=== PATIENT | female | born 1970 | race African-American/Black ===

== ENCOUNTER 2020-01-31 05:39 | Emergency (ER) | payer OTHER ==
[~2020-01-31] VITALS: Ht 162.6 cm; Wt 79.5 kg
[2020-01-31 05:47] VITALS: BP 149/75
--- NOTE | 2020-01-31 06:00 | PHYS DOC ---
Past Medical History Past Medical History: No Pertinent History Past Surgical History: Smoking Status: Former Smoker Alcohol Use: None Drug Use: None General Adult EDM: Chief Complaint: URINARY FREQUENCY HPI: HPI: Patient is a 49-year-old female past medical history notable for hypertension who presents with chief complaint of urinary frequency and dysuria over the past 2 days. She notes mild suprapubic discomfort. She states she has tried Pyridium tablets from [facility] over the past day with minimal relief. Denies hematuria. Denies fevers or vomiting. Denies back pain. Denies syncope. Denies history of abdominal surgeries. States she has been eating and drinking well otherwise. Denies any vaginal complaints. Denies changes to her stool caliber or consistency. States her only concern is having her urine assessed for infection. No other complaints. Review of Systems: Review of Systems: Constitutional: Denies fever or chills. [] Eyes: Denies change in visual acuity. [] HENT: Denies nasal congestion or sore throat. [] Respiratory: Denies cough or shortness of breath. [] Cardiovascular: Denies chest pain or edema. [] GI: Denies abdominal pain, nausea, vomiting, bloody stools or diarrhea. [] : Positive for increased urge to void and dysuria Musculoskeletal: Denies back pain or joint pain. [] Integument: Denies rash. [] Neurologic: Denies headache, focal weakness or sensory changes. [] Endocrine: Denies polyuria or polydipsia. [] Lymphatic: Denies swollen glands. [] Psychiatric: Denies depression or anxiety. [] Heart Score: Risk Factors: Risk Factors: DM, Current or recent (<one month) smoker, HTN, HLP, family history of CAD, obesity. Risk Scores: Score 0 - 3: 2.5% MACE over next 6 weeks - Discharge Home Score 4 - 6: 20.3% MACE over next 6 weeks - Admit for Clinical Observation Score 7 - 10: 72.7% MACE over next 6 weeks - Early Invasive Strategies Allergies: Allergies: Allergies Coded Allergies Type Severity Reaction Last Updated Verified No Known Drug Allergies 08/28/14 No Physical Exam: PE: Constitutional: Well developed, well nourished, no acute distress, non-toxic appearance. [] HENT: Normocephalic, atraumatic, bilateral external ears normal, oropharynx m oist, no oral exudates, nose normal. [] Eyes: PERRLA, EOMI, conjunctiva normal, no discharge. [] Neck: Normal range of motion, no tenderness, supple, no stridor. [] Cardiovascular:Heart rate regular rhythm, no murmur [] Lungs & Thorax: Bilateral breath sounds clear to auscultation [] Abdomen: Soft, nontender, nonacute abdomen. No involuntary guarding or rigidity noted. No acute peritonitis. Skin: Warm, dry, no erythema, no rash. [] Back: No tenderness, no CVA tenderness. [] Extremities: No tenderness, no cyanosis, no clubbing, ROM intact, no edema. [] Neurologic: Alert and oriented X 3, normal motor function, normal sensory function, no focal deficits noted. [] Psychologic: Affect normal, judgement normal, mood normal. [] Current Patient Data: Labs: Laboratory Tests Test 01/31/20 05:50 01/31/20 06:11 Urine Collection Type Void Urine Color [place] Urine Clarity Hazy Urine pH Urine Specific [place] Urine Protein mg/dL Urine Glucose (UA) mg/dL Urine Ketones (Stick) mg/dL Urine Blood Urine Nitrite Urine Bilirubin Urine Urobilinogen Dipstick mg/dL Urine Leukocyte Esterase Urine RBC 3-5 /HPF Urine WBC >40 /HPF Urine Squamous Epithelial Cells Few /LPF Urine Bacteria Many /HPF Urine Mucus Marked /LPF Bedside Urine HCG, Qualitative Hcg negative Vital Signs: Vital Signs Date Time Temp Pulse Resp B/P (MAP) Pulse Ox O2 Delivery O2 Flow Rate FiO2 01/31/20 05:47 97.9 84 20 149/75 (99) 99 Room Air 97.9 EKG: EKG: [] Radiology/Procedures: Radiology/Procedures: [] Course & Med Decision Making: Course & Med Decision Making Pertinent Labs and Imaging studies reviewed. (See chart for details) [] Patient is a well-appearing 49-year-old female presents with chief complaint of urinary frequency and dysuria. Urine does show evidence of infection. Clinically patient has no signs or symptoms related to pyelonephritis. She will be given a course of Keflex. First dose given in emergency department and she tolerated this well. Instructed to follow-up with her primary care physician in the next 2 to 3 days. Return precautions discussed and understood. Stable for discharge home. Fletcher Disclaimer: Fletcher Disclaimer: This electronic medical record was generated, in whole or in part, using a voice recognition dictation system. Departure Departure Impression: Primary Impression: Urinary tract infection Qualified Codes: N39.0 - Urinary tract infection, site not specified; R31.9 - Hematuria, unspecified Disposition: HOME, SELF-CARE Condition: STABLE Referrals: JUANITA TATE MD (PCP) Patient Instructions: Urinary Tract Infection Additional Instructions: Please follow-up with your primary care physician in the next 2 to 3 days Scripts Cephalexin (KEFLEX) 500 Mg Capsule 1 CAP PO BID for 5 Days, #10 CAP 0 Refills Prov: CHASIDY PENALOZA DO 01/31/20 Justicifation of Admission Dx: Justifications for Admission: Justification of Admission Dx: N/A CHASIDY PENALOZA DO Jan 31, 2020 06:00
[2020-01-31 06:13] LABS: CLARITY,URINE HAZY; COLOR,URINE ORANGE
[2020-01-31 06:14] LABS: BACTERIA,URINE MANY /HPF (0-FEW); SQUAMOUS EPITHELIAL CELL,UR FEW /LPF; WBC,URINE >40 /HPF (0-4)
[2020-01-31] MEDS ORDERED: CEPH-264 PO (06:20)
[2020-01-31] MEDS ORDERED: CEPHALEXIN 250 MG CAPSULE. PO ONE (07:00)
== END 2020-01-31 06:31 | disposition home or self-care (01) ==
LOC: ER 05:39
DX: N39.0 Urinary tract infection, site not specified (principal); R31.9 Hematuria, unspecified; Z98.890 Other specified postprocedural states; Z87.891 Personal history of nicotine dependence
CPT/HCPCS: 81001; 81025; 87077; 87086; 87186; 99283